=== PATIENT | female | born 1960 | race Caucasian/White ===

== ENCOUNTER → 2021-05-05 06:33 | Outpatient (CLI) | payer BC, SELFPAY ==
--- NOTE | 2021-05-05 06:43 | ECHOD_ITS ---
Reason For Study: SOB Procedure This was a 2D Doppler, Color Flow transthoracic echocardiogram. The exam was of adequate technical quality. Exam performed in department. Left Ventricle Normal LV size. Left ventricular systolic function is normal. The estimated ejection fraction is 55 %. No evidence for diastolic dysfunction. No regional wall motion abnormalities noted. Right Ventricle Normal RV size. Normal systolic function. Atria Normal left atrium. Normal right atrium. No doppler evidence for ASD. Mitral Valve There is mild mitral annular calcification. Normal mitral valve. Trivial mitral valve insufficiency. Tricuspid Valve Normal tricuspid valve. Trivial tricuspid valve insufficiency. Right ventricular systolic pressure estimated to be 25 mmHg. Aortic Valve Trisinus/trileaflet aortic valve. Normal aortic valve. Trivial aortic valve insufficiency. Pulmonic Valve The pulmonic valve is not well visualized. Trivial pulmonic valve insufficiency. Great Vessels The aortic root is not well visualized. Pericardium/Pleural No pericardial effusion. Epicardial fat. MMode/2D Measurements & Calculations LVIDd: 4.3 cm IVSd: 1.0 cm LA dimension: 3.4 cm LVIDs: 2.6 cm LVPWd: 0.96 cm FS: 40.3 % LAV(MOD-bp): 41.2 ml LA A4 area: 16.0 cm2 RA A4 area: 14.1 cm2 LAV(MOD-bp) Indexed: 21.1 ml/m2 LAV(MOD-sp2): 39.3 ml LAV(MOD-sp4): 40.2 ml Time Measurements MV dec time: 0.22 sec Doppler Measurements & Calculations MV E max will: 84.2 cm/sec Lat Peak E' Will: 12.8 cm/sec Med Peak E' Will: 9.2 cm/sec MV A max will: 76.6 cm/sec E/E' lat: 6.6 E/E' med: 9.1 MV E/A: 1.1 MV V2 max: 91.1 cm/sec MV P1/2t max will: 91.7 cm/sec Ao V2 max: 104.9 cm/sec MV max P.3 mmHg MV P1/2t: 105.0 msec Ao max P.4 mmHg MV V2 mean: 53.9 cm/sec MV dec slope: 255.8 cm/sec2 MV mean P.3 mmHg MVA(P1/2t): 2.1 cm2 MV V2 VTI: 29.4 cm LV V1 max: 101.5 cm/sec PA V2 max: 80.9 cm/sec TR max will: 234.4 cm/sec LV V1 max P.1 mmHg TR max P.0 mmHg ECHO/Echo Complete Interpretation Summary Left ventricular systolic function is normal. The estimated ejection fraction is 55 %. There is mild mitral annular calcification. Trivial mitral valve insufficiency. Trivial tricuspid valve insufficiency. Trivial aortic valve insufficiency. Trivial pulmonic valve insufficiency. Epicardial fat. Right ventricular systolic pressure estimated to be 25 mmHg. No evidence for diastolic dysfunction. Ordering Physician: Jazmine Nicole Referring Physician: Jazmine Nicole Performed By: Brodwolf, Michael, RCS
--- NOTE | 2021-05-05 12:53 | STRESSREP_ITS ---
Stress Test Report Date: 05-05-2021 Procedure: Pharmacologic stress nuclear imaging study Indications: Shortness of breath/dyspnea on exertion Consent: Per the patient Procedure: The patient underwent pharmacologic (Regadenoson 0.4mg ) evaluation with a peak heart rate of 107 beats per minute (66%predicted maximal heart rate) and a peak blood pressure of 130/84 mmHg. The baseline ECG demonstrated sinus rhythm. The peak pharmacologic ECG demonstrated no obvious ECG changes. There were no cardiac dysrhythmias pretest, during pharmacologic infusion, or recovery. There was no complaint of chest discomfort during pharmacologic infusion or recovery. The examination was discontinued secondary to completion of protocol. Impression: 1. Pharmacologic (Regadenoson) evaluation 2. Peak pharmacologic ECG with no obvious ECG changes. 3. There were no cardiac dysrhythmias pretest, during pharmacologic infusion, or recovery. 4. Nuclear images pending Myocardial perfusion imaging study: Technique: The patient was injected with 11.8 millicuries of technetium 99m Cardiolite and subsequently rest SPECT Cardiolite nuclear imaging was obtained in the horizontal long, vertical long, and short axis views. The patient underwent pharmacologic (Regadenoson) evaluation with a peak heart rate of 107 beats per minute (66% percent predicted maximal heart rate) and a peak blood pressure of 130/84 mmHg. The patient was injected with 34.7 millicuries of technetium 99m Cardiolite and subsequently stress SPECT Cardiolite nuclear imaging was obtained in the horizontal long, vertical long, and short axis views. A gated Cardiolite study at peak stress was obtained. Interpretation: Rest and stress SPECT Cardiolite nuclear imaging status post realignment, normalization, and attenuation correction demonstrate relative uniform tracer uptake and myocardial perfusion appearing within normal limits. There is end systolic thickening and brightening. The gated Cardiolite study demonstrates myocardial thickening and inward wall motion. The reported LVEF is 65%. Impression: 1. Rest and stress SPECT Cardiolite nuclear imaging demonstrate relative un iform tracer uptake and myocardial perfusion appearing within normal limits. 2. The gated Cardiolite study reports an LVEF of 65%. This note was generated with [employer] software. It may contain incorrect words, spelling, and punctuation that were not noted in checking the note before signing.
== END ==
PROVIDERS: PCP Student in an Organized Health Care Education/Training Program; Referring Provider Nurse Practitioner Family; Visit Provider Nurse Practitioner Family
DX: R06.02 Shortness of breath (principal)
CPT/HCPCS: 78452; 93017; 93306; A9500; A4216; J2785